=== PATIENT | male | born 1995 | race Caucasian/White ===

== ENCOUNTER 2020-06-09 11:05 | Emergency (ER) | payer OTHER, SELFPAY ==
[2020-06-09 11:13] VITALS: BP 130/59; PULSE 98; RESP 16; TEMP 36.6; O2SAT 98
--- NOTE | 2020-06-09 11:17 | ED.EXTPRO ---
HPI - Extremity Problem General Chief complaint: Extremity Problem,Nontraumatic Stated complaint: ring stuck on finger Time Seen by Provider: 06/09/20 11:17 Source: patient and RN notes reviewed Mode of arrival: ambulatory Limitations: no limitations History of Present Illness HPI Narrative: 22-year-old male presents with concern for a ring on the fourth digit of his left hand that he is unable to remove. Reports he put the ring on last night as part of a hollowing costume. Report is his finger is slightly swollen. He denies any difficulty getting the ring on. He denies any decreased sensation, range of motion in his finger. MD Complaint: other (Ring removal) Related Data Home Medications Medication Instructions Recorded Confirmed No Home Medications 06/09/20 06/09/20 Allergies Allergy/AdvReac Type Severity Reaction Status Date / Time No Known Allergies Allergy Verified 02/28/20 09:35 Review of Systems Review of Systems: Narrative: CONSTITUTIONAL: Denies malaise, chills, sweats, or fever. SKIN: Denies open skin, bruising MUSCULOSKELETAL: Reports swollen fourth digit of left hand, ring stuck on the finger. Denies any musculoskeletal pain that might NEUROLOGIC: Denies numbness, weakness All systems reviewed & are unremarkable except as noted in HPI and below PMFSH Past Medical History Medical History (Updated 06/09/20 @ 11:33 by Leena Villagran NP) Healthy male adult Social History Social History Smoking status: Current every day smoker Second hand tobacco smoke exposure: Yes Alcohol intake: current Substance use: never Substance use type: does not use Comments At time of signature, agree with nursing past medical, surgical, social and family history. There is no relevant family history pertinent to the presenting complaint Exam Narrative: Exam Narrative: GENERAL: Well-appearing, well-nourished, and in no acute distress. HEAD: Normocephalic EYES: PERRLA, conjunctivae clear NECK: Supple. CHEST: Speaks in full sentences. No respiratory distress. HEART: Regular rate and rhythm. Normal and equal peripheral pulses. EXTREMITIES: Fourth digit of left hand has normal strength and sensation. 5/5 strength with digit flexion, extension. Range of motion normal. No clubbing, cyanosis. Mild amount of edema noted to the PIP joint. No tenderness. Skin intact. Normal digital cascade with flexion of fingers, median, ulnar and radial nerve intact. Normal sensation of each side of finger. Can perform 'okay' sign, 'cross over finger test of index and middle fingers' and 'thumbs up' sign. No scissoring. Normal thumb opposition. Good capillary refill and radial pulse. Distal capillary refill less than 3 seconds. SKIN: Warn, dry, intact, pink. No rash NEURO: Alert and oriented x3. PSYCH: Normal mood and affect Course Course Emergency Course: Patient is aware of diagnosis, understands and agrees to treatment plan. Anticipatory guidance given. Patient agrees to follow-up as directed and is aware of reasons to seek care at the emergency department. Portions of this record may have been created with voice recognition software Vital Signs Vital signs: Vital Signs Temperature 98 F 06/09/20 11:13 Pulse Rate 98 06/09/20 11:13 Respiratory Rate 16 06/09/20 11:13 Blood Pressure 130/59 L 06/09/20 11:13 Pulse Oximetry 98 06/09/20 11:13 Temperature 98 F 06/09/20 11:13 Pulse Rate 98 06/09/20 11:13 Respiratory Rate 16 06/09/20 11:13 Blood Pressure 130/59 L 06/09/20 11:13 Pulse Oximetry 98 06/09/20 11:13 Reviewed. Procedures Other Procedure Procedure 1: Other Procedure: Metal ring removed using ring removal device without complications. Pre and postop neurovascular exam normal MDM - Extremity (Nontraumatic) MDM Narrative Medical decision making narrative: Exam findings show no acute concerns or changes; patient is non
== END 2020-06-09 11:38 | disposition home or self-care (01) ==
PROVIDERS: Emergency Provider Nurse Practitioner; PCP Family Medicine
DX: S60.445A External constriction of left ring finger, initial encounter (principal); W49.04XA Ring or other jewelry causing external constriction, initial encounter; F17.200 Nicotine dependence, unspecified, uncomplicated
CPT/HCPCS: 99212; G0463

== ENCOUNTER 2020-07-02 06:55 | Outpatient (NON) | payer OTHER, SELFPAY ==
[2020-07-03 01:18] LABS: SARS-CoV-2 RNA PCR Negative
== END 2020-07-02 06:56 ==
LOC: ANHCOVIDDT 07:08
PROVIDERS: PCP Family Medicine; Visit Provider Family Medicine
DX: Z20.828 Contact with and (suspected) exposure to other viral communicable diseases (principal)
CPT/HCPCS: 87635; C9803; U0003

== ENCOUNTER 2021-06-21 00:32 | Emergency (ER) | payer OTHER, SELFPAY ==
[2021-06-21 00:33] VITALS: BP 163/80; PULSE 119; RESP 24; TEMP 36.6; O2SAT 95
[2021-06-21 00:39] VITALS: BP 163/80; PULSE 120; RESP 21; O2SAT 94
--- NOTE | 2021-06-21 00:47 | PC.NURSE ---
Updated pt mom by phone per pt request. [phone] (dad, Damian) when pt is ready to be picked up.
[2021-06-21 00:52] VITALS: BP 143/83; PULSE 120; RESP 18; O2SAT 97
[2021-06-21 01:01] LABS: Basophils Absolute Auto 0.1 K/mm3 (0.0-0.1); Basophils Percent Auto 0.7 % (0.2-1.2); Eosinophils Absolute Auto 0.1 K/mm3 (0-0.3); Eosinophils Percent Auto 0.6 % (0-4.4); Hematocrit 38.8 % (42.0-52.0); Hemoglobin 14.3 g/dL (14.0-18.0); Immature Granulocyte Absolute 0.01 K/mm3 (0.00-0.031); Immature Granulocyte Percent A 0.1 % (0-0.5); Lymphocytes Percent Auto 18.4 % (18.3-44.2); Mean Corpuscular HGB Conc 36.9 g/dl (32-36); Mean Corpuscular Hemoglobin 32.4 pg (26-34); Mean Platelet Volume 8.9 fl (7.4-10.4); Monocytes Absolute Auto 0.5 K/mm3 (0.1-0.6); Monocytes Percent Auto 4.9 % (2.6-8.5); Neutrophils Absolute Auto 7.3 K/mm3 (1.3-6.7); Neutrophils Percent Auto 75.3 % (45.5-73.1); Platelet Count Result 365 k/mm3 (150-375); Red Blood Count 4.41 M/mm3 (4.6-6.20); Red Cell Distribution Width 12.8 % (11.5-14.5); White Blood Count 9.8 K/mm3 (4.5-10.0)
[2021-06-21 01:13] LABS: Alanine Aminotransferase 25 U/L (4-50); Albumin Level 4.9 g/dL (3.5-5.1); Alkaline Phosphatase 84 U/L (38-126); Anion Gap 15 mmol/L (8-16); Aspartate Amino Transferase 72 U/L (17-59); Bilirubin,Total 0.3 mg/dL (0.2-1.3); Blood Urea Nitrogen 9 mg/dL (9-20); Calcium 9.2 mg/dL (8.4-10.2); Carbon Dioxide 26 mmol/L (22-30); Chloride 104 mmol/L (98-107); Estimated CRCL calculation 116 ml/min; Estimated Glomerular Filt Rate > 60; Glucose 137 mg/dL (65-110); Potassium 3.4 mmol/L (3.4-5.0); Sodium 145 mmol/L (137-145)
--- NOTE | 2021-06-21 01:17 | ED.GENADULT ---
HPI - General Adult General Chief complaint: Alcohol Stated complaint: AMS after adderral and 5th of liquor Time Seen by Provider: 06/21/21 00:41 History of Present Illness HPI narrative: Patient is a 25-year-old gentleman who presents the emergency department with chief complaint of alcohol intoxication. Patient reports he had been drinking tonight and also took some Adderall. Patient states that he was wandering around and could not find his apartment. Patient knocked on multiple doors and PD and EMS were called. The patient denies suicidal or homicidal ideation and reports that he has no nausea at this time and reports that he does feels a toxic. Related Data Allergies Allergy/AdvReac Type Severity Reaction Status Date / Time No Known Allergies Allergy Verified 06/21/21 00:44 Review of Systems Review of Systems: A 10 system review of systems was completed on the patient and is negative except for what is stated in the HPI. Nursing and ancillary documentation was reviewed. PMFSH Past Medical History Medical History Chronic right shoulder pain Concussion without loss of consciousness, subsequent encounter Dysuria Generalized abdominal pain GERD without esophagitis Healthy male adult High risk heterosexual behavior Irritant contact dermatitis Nausea Other chronic pain Penile discharge Poison [place]io Ringworm Screening for STD (sexually transmitted disease) Winged scapula of right side Family History Family History Other No pertinent family history Social History Social History Smoking status: Never smoker Second hand tobacco smoke exposure: Yes Alcohol intake: current Substance use: current Substance use type: marijuana Gender identity (if verbalized by the patient): Male Exam Narrative: GENERAL: Well-appearing, well-nourished, and in no acute distress. HEAD: Normocephalic, atraumatic. EYES: PERRLA and EOMI. ENT: Nares clear, no rhinorrhea or epistaxis. Mucous membranes moist. NECK: Supple. CHEST: Clear to auscultation. No respiratory distress. HEART: Regular rate and rhythm. No murmur heard. Normal peripheral pulses. ABDOMEN: Soft, nontender, nondistended, normal active bowel sounds. EXTREMITIES: Normal range of motion. No edema. SKIN: Warm, dry, no rash. NEURO: No focal deficits. Alert and oriented x3. PSYCH: Normal mood and affect. Course Vital Signs Vital signs: Vital Signs Temperature 36.6 C 06/21/21 00:33 Pulse Rate 119 H 06/21/21 00:33 Respiratory Rate 24 H 06/21/21 00:33 Blood Pressure 163/80 H 06/21/21 00:33 Pulse Oximetry 95 06/21/21 00:33 Temperature 36.6 C 06/21/21 00:33 Pulse Rate 94 06/21/21 02:40 Respiratory Rate 16 06/21/21 02:40 Blood Pressure 129/96 H 06/21/21 02:40 Pulse Oximetry 98 06/21/21 02:40 Medical Decision Making Vital Signs Vital Signs: Vital Signs Temperature 36.6 C 06/21/21 00:33 Pulse Rate 119 H 06/21/21 00:33 Respiratory Rate 24 H 06/21/21 00:33 Blood Pressure 163/80 H 06/21/21 00:33 Pulse Oximetry 95 06/21/21 00:33 Temperature 36.6 C 06/21/21 00:33 Pulse Rate 94 06/21/21 02:40 Respiratory Rate 16 06/21/21 02:40 Blood Pressure 129/96 H 06/21/21 02:40 Pulse Oximetry 98 06/21/21 02:40 Lab Data Result diagrams: 06/21/21 00:48 06/21/21 00:48 Labs: Lab Results 06/21/21 06/21/21 06/21/21 Range/Units 00:48 00:48 00:48 WBC 9.8 (4.5-10.0) K/mm3 RBC 4.41 L (4.6-6.20) M/mm3 Hgb 14.3 (14.0-18.0) g/dL Hct 38.8 L (42.0-52.0) % MCV 88.0 (80-100) fl MCH 32.4 (26-34) pg MCHC 36.9 H (32-36) g/dl RDW 12.8 (11.5-14.5) % Plt Count 365 (150-375) k/mm3 MPV 8.9 (7.4-10.4) fl Immature Gran % (Auto) 0.1 (0-0.5) % Neut
[2021-06-21] MEDS: SODIUM CHLORIDE 0.9% IV 1,000 ML 999 ML IV CONT (01:32)
[2021-06-21 01:40] LABS: Ethanol 404 mg/dL (<10)
[2021-06-21 01:47] LABS: Add Urine Microscopic? YES; Appearance Urine Clear (Clear); Bilirubin Urine Negative (Negative); Blood Urine 1+ (Negative); Color Urine Straw (Yellow); Glucose Urine UA Negative (Negative); Ketones Urine Negative (Negative); Leukocyte Esterase Ur Negative LEU/UL (Negative); Mucus Urine Rare /lpf; Nitrate Urine Negative (Negative); Protein Urine Negative (Negative); Urobilinogen Urine Negative mg/dL (<2.0)
[2021-06-21 01:50] LABS: Specific Grav Ur 1.004 (1.001-1.035)
[2021-06-21 02:40] VITALS: BP 129/96; PULSE 94; RESP 16; O2SAT 98
[2021-06-21 03:18] LABS: Amphetamine Screen Urine Negative (Negative); Barbiturate Screen Urine Negative (Negative); Benzodiazepines Screen Urine Negative (Negative); Cannabinoid Screen Urine Negative (Negative); Cocaine Screen Urine Positive (Negative); Methadone Screen Urine Negative (Negative); Opiate Screen Urine Negative (Negative); Phencyclidine Screen Urine Negative (Negative)
[2021-06-21 03:34] VITALS: BP 156/92; PULSE 99; RESP 18; O2SAT 96
== END 2021-06-21 03:35 | disposition home or self-care (01) ==
PROVIDERS: Emergency Provider Emergency Medicine; PCP Family Medicine
DX: F10.920 Alcohol use, unspecified with intoxication, uncomplicated (principal); G89.29 Other chronic pain; Z87.19 Personal history of other diseases of the digestive system; Z77.22 Contact with and (suspected) exposure to environmental tobacco smoke (acute) (chronic); Y90.8 Blood alcohol level of 240 mg/100 ml or more
CPT/HCPCS: 36415; 80053; 80307; 81001; 85025; 96360; 99283; J7030